=== PATIENT | male | born 1955 | race Caucasian/White ===

== ENCOUNTER 2019-03-09 12:43 | Inpatient (IN) | payer MEDICARE, SELFPAY ==
[2019-03-09 12:46] VITALS: BP 169/85; PULSE 98; RESP 20; TEMP 37.3; O2SAT 95; BMI 33.4
--- NOTE | 2019-03-09 15:35 | ED.DCSUM_ITS ---
- ER Visit Summary Date of Service: 03/09/19 Chief Complaint: Back pain History of Present Illness: The patient is a 64 M presenting with back pain. Patient states this started on Wednesday. He states on Wednesday he was using a sledgehammer. On Wednesday he was cleaning windows. He does not recall a specific injury. He states Wednesday night he started having pain around his right shoulder blade. He had mild associated shortness of breath which is now resolved. He denies chest pain. He has a family history of blood clot, no other PE/DVT risk factors. He went to urgent care today and was sent into the ED for further evaluation. They did a urine dipstick which showed trace blood. Patient has a history of kidney stones. He has no flank pain, dysuria, hematuria, abdominal pain, nausea, vomiting, diarrhea. Subjective fever. Denies other complaints. Physical Examination: Vitals are stable. Temperature 99.2. Alert no acute distress. HEENT exam is unremarkable. Neck is supple. Lungs are clear and equal bilaterally. Heart is regular rate and rhythm. Abdomen is soft nontender nondistended. Back: mild right paraspinal thoracic muscle tenderness. No midline tenderness. No CVA tenderness Extremities are unremarkable. Skin is warm and dry. No rash No focal neurologic deficit. Normal strength and sensation Remainder of exam is unremarkable. Emergency Department Course and Treatment: CBC shows white count 17.7. Chemistries unremarkable. CT abdomen/pelvis shows Findings may be residual or due to chronic fibrosis and absence of acute symptomatology for pneumonia. Mild consolidation is present in the medial aspect of the right lower lobe and associated with a small pleural effusion. A very small focus of consolidation is present in the superior pole of the left lower lobe. A 6 mm calyceal stone is present in the midpole of the right kidney. A 3 mm calyceal stone is also present in the midpole of the right kidney. Mild bilateral perinephric stranding is present, likely due to chronic inflammation. A 3 mm calyceal stone is seen in the upper pole of the left kidney. No hydronephrosis is present. No hydroureter is seen on this study. CTA chest shows mild to moderate irregular consolidation is present in the basilar segment of the right lower lobe and associated with a small pleural effusion. A very small focus of consolidation is seen in the right middle lobe as well as the superior segment of the left lobe lower lobe. Left lower lobe atelectasis is also present. The remaining lung terry are clear. The findings can be associated with pneumonic infiltrates particularly in the right lower lobe, but previous infection and unresolved changes can also present in this manner. Negative for pulmonary embolism of the main pulmonary arteries and trauma. These smaller branches are suboptimally to poorly opacified and not of diagnostic quality to exclude pulmonary embolism in these regions. If symptoms persist consider nuclear medicine VQ scan. Lactic acid 1.3. Urinalysis shows trace blood, 0-5 white blood cells, 0 red blood cells. Blood cultures were sent. He was given Levaquin IV. Discussed with the hospitalist for admission. Disposition: Admission Impression: Multilobar pneumonia This note was generated with [employer] dictation software. It may contain incorrect words, spelling, and punctuation that were not noted in review of the chart prior to signing ED Disposition - Plan for ED Patient: Referrals: Obed Bobby MD [Primary Care Provider] -
[2019-03-09 15:48] LABS: Absolute Lymphocyte Count 1.32 X10^3/uL (0.83-4.51); Absolute Neutrophil Count 14.8 X10^3/uL (2.0-7.7); Basophil# 0.05 X10^3/uL; Basophil% 0.3 % (0-1); Hematocrit 47.5 % (40-54); Lymphocyte # 1.32 X10^3/ul (4.0); Lymphocyte % 7.5 % (19-41); Mean Corp Hgb Conc 33.7 g/dL (32-36); Mean Corpuscular Hgb 31.3 pg (27.0-32.0); Monocyte# 1.46 X10^3/uL; Monocyte% 8.3 % (0-10); NRBC Flagged by Analyzer 0 % (0-5); Neutrophil # 14.75 X10^3/uL (2.7-7.7); Neutrophil % 83.4 % (47-70); Platelet Count 251 K/mm3 (150-450); RBC Distribution Width CV 12.7 % (11.6-14.6); RBC Distribution Width SD 43.8 fl (35.1-43.9); Red Blood Count 5.11 M/mm3 (4.6-6.2); White Blood Count 17.7 K/mm3 (4.4-11.0)
[2019-03-09 16:01] LABS: Anion Gap 5 (5-15); BUN 18 mg/dL (7-18); BUN/Creat Ratio 15.8 RATIO (10-20); Calcium,Total 9.1 mg/dL (8.5-10.1); Chloride 104 mmol/L (98-107); Creatinine, Serum 1.14 mg/dL (0.70-1.30); EST Glomerular Filtration Rate 69 mL/min (>60); Est Glom Filt Rate - Afr Amer 83 mL/min (>60); Glucose 104 mg/dL (74-106); Potassium 4.2 mmol/L (3.5-5.1); Sodium Level 136 mmol/L (136-145)
--- NOTE | 2019-03-09 16:20 | CT_ITS ---
STUDY: CT ABDOMEN AND PELVIS WITHOUT CONTRAST REASON FOR EXAM: Male, 64 years old. BACK PAIN, HX [place] RADIATION DOSAGE (If Supplied By Facility): CTDIvol = ( 16.39 ) mGy, DLP = ( 1884.73 ) mGycm TECHNIQUE: Transaxial images were obtained from the dome of the diaphragm to the symphysis pubis without oral contrast, and without intravenous contrast. Sagittal and coronal images were reconstructed. Individualized dose optimization techniques were used for this CT. COMPARISON: None. FINDINGS: Mild consolidation is present in the medial aspect of the right lower lobe and associated with a small pleural effusion. A very small focus of consolidation is present in the superior pole of the left lower lobe. Normal liver. Normal gallbladder and extrahepatic biliary system. Normal spleen. Normal pancreas. Normal bilateral adrenal glands. A 6 mm calyceal stone is present in the midpole of the right kidney. A 3 mm calyceal stone is also present in the midpole of the right kidney. Mild bilateral perinephric stranding is present. A 3 mm calyceal stone is seen in the upper pole of the left kidney. No hydronephrosis is present. No hydroureter is seen on this study. Normal left kidney. Normal visualized stomach. Normal small intestine. Normal colon. There is non-visualization of the appendix. There is diffuse atherosclerotic calcification of the abdominal aorta, without a demonstrated aneurysm. Normal inferior vena cava. Normal retroperitoneum. Normal urinary bladder. Small bilateral fat and mesenteric containing inguinal hernias are present. There are diffuse degenerative changes of the visualized lumbar spine. CT/Abdomen/Pelvis without Cont IMPRESSION: 1. Dose the patient have a clinical presentation of pneumonia? Findings may be residual or due to chronic fibrosis and absence of acute symptomatology for pneumonia. Mild consolidation is present in the medial aspect of the right lower lobe and associated with a small pleural effusion. A very small focus of consolidation is present in the superior pole of the left lower lobe. 2. A 6 mm calyceal stone is present in the midpole of the right kidney. A 3 mm calyceal stone is also present in the midpole of the right kidney. 3. Mild bilateral perinephric stranding is present, likely due to chronic inflammation. 4. A 3 mm calyceal stone is seen in the upper pole of the left kidney. No hydronephrosis is present. No hydroureter is seen on this study. Electronically Signed: Davon Echeverria MD at 17:33 EDT , Service support ,
--- NOTE | 2019-03-09 16:20 | CT_ITS ---
STUDY: CTA CHEST REASON FOR EXAM: Male, 64 years old. SOB, HX PE RADIATION DOSAGE (If Supplied By Facility): CTDIvol = ( 16.39 ) mGy, DLP = ( 1884.73 ) mGycm TECHNIQUE: The examination was performed with the intravenous administration of IV Isovue 370 100. Post-processing of the angiographic images was performed, with multiplanar reformation and 3D reconstruction. Individualized dose optimization techniques were used for this CT. COMPARISON: CT of the abdomen and pelvis dated March 09, 2019. FINDINGS: Normal enhancement of the main pulmonary artery and right and left pulmonary arteries. Suboptimal to poor opacification of the secondary and tertiary smaller branches of the pulmonary arteries result in very limited evaluation and is not of diagnostic quality to exclude pulmonary embolism in these regions. No embolus is seen in the pulmonary trunk or main pulmonary arteries. Normal thoracic aorta and visualized great vessels. There is no demonstrated aortic dissection. Normal heart and pericardium. Normal mediastinum. Normal hilar regions. Normal visualized trachea and bronchi. The lungs are well expanded. Mild to moderate irregular consolidation is present in the basilar segment of the right lower lobe and associated with a small pleural effusion. A very small focus of consolidation is seen in the right middle lobe as well as the superior segment of the left lobe lower lobe. Left lower lobe atelectasis is also present. The remaining lung terry are clear. The findings can be associated with pneumonic infiltrates particularly in the right lower lobe, but previous infection and unresolved changes can also present in this manner. Correlation with current clinical symptomatology is recommended. Normal chest wall structures. Normal osseous structures. Normal visualized upper abdomen. CT/CTA Chest W/WO Contrast IMPRESSION: 1. Mild to moderate irregular consolidation is present in the basilar segment of the right lower lobe and associated with a small pleural effusion. 2. A very small focus of consolidation is seen in the right middle lobe as well as the superior segment of the left lobe lower lobe. Left lower lobe atelectasis is also present. The remaining lung terry are clear. 3. The findings can be associated with pneumonic infiltrates particularly in the right lower lobe, but previous infection and unresolved changes can also present in this manner. Correlation with current clinical symptomatology is recommended. 4. Negative for pulmonary embolism of the main pulmonary arteries and trauma. These smaller branches are suboptimally to poorly opacified and not of diagnostic quality to exclude pulmonary embolism in these regions. If symptoms persist consider nuclear medicine VQ scan. Electronically Signed: Davon Echeverria MD at 17:42 EDT , Service support ,
[2019-03-09 16:48] LABS: Bacteria 0 SEEN /hpf (None Seen); Red Blood Cells-Urine 0 SEEN /hpf (0-5); Squamous Epithelial Cells - UA 0 SEEN /hpf (0-5)
[2019-03-09 16:53] LABS: Color, Urine Yellow (Yellow); Glucose, Dipstick Normal (Normal); Ketone-Dipstick Negative (Negative); Leukocyte Esterase-Dipstick 25 /ul (Negative); Nitrite-Dipstick Negative (Negative); Occult Blood-Urine 25 /ul (Negative); Protein-Dipstick 30 mg/dl (Negative); Urine Bilirubin Dipstick Negative (Negative); Urine Clarity Clear (Clear); Urine Urobilinogen Normal (Normal)
[2019-03-09 17:09] LABS: Mucous, Urine 1+ /hpf (<or=2+); White Blood Cells 0-5 SEEN /hpf (0-5)
[2019-03-09 18:04] VITALS: O2SAT 95
[2019-03-09 18:42] LABS: Lactic Acid 1.3 mmol/L (0.4-2.0)
[2019-03-09] MEDS: levoFLOXacin IV 750 MG/150 ML BAG 100 MG IV (19:11)
[2019-03-09 19:12] VITALS: PULSE 80; TEMP 37.6
[2019-03-09 19:13] VITALS: PULSE 80; TEMP 37.6
--- NOTE | 2019-03-09 20:06 | PCM.HP.STD ---
Problem List (1) Community acquired pneumonia Status: Acute History of Present Illness Date of Admission: 03/09/19 Chief Complaint: Right upper back pain The patient is a 64 year old M with a significant history of hypertension not on any home blood pressure medication who presented to the emergency department with right upper back pain that started 2 days before presentation. Because patient did some physical activity with sledge hammer on the day before his symptoms started he attributed his pain to the muscle strain from his hard work. Also he was concerned that he might have developed kidney stones because of previous history of kidney stones. However because his symptoms was progressively getting worse he went to the urgent care on the day of presentation. Urinalysis done at the urgent care showed some trace blood. Chest x-ray was inconclusive. The patient was sent to emergency department to get a CAT scan of his chest. His right shoulder pain is nonradiating. It is a severe. It is aggravated by movements and ameliorated by rest. Associated with symptoms is shortness of breath. He denies any cough. At home patient was taking Tylenol [id number] for pain. Past Medical History Medical History: Medical History (Last Updated 03/09/19 @ 20:47 by Ti Cordoba MD) Hypertension I10 Allergies No Known Allergies Allergy (Verified 03/09/19 12:45) Home Medications: Ambulatory Orders Medication Instructions Recorded Acetaminophen [Tylenol Extra 1,000 mg PO Q6H PRN PRN 03/09/19 Strength] Multivitamin with Minerals 1 ea PO DAILY 03/09/19 [Multiple Vitamin] Surgical History: - - Ankle surgery with nail and plate in. Lives: Spouse/ Significant Other Smoking Status: Never smoker Alcohol: Occasional - *Family History Maternal History Items: Cancer - Breast, Hypertension Paternal History Items: Heart Disease Review of Systems Constitutional: Reports: Anorexia, Chills, Fever - Subjective. Denies: Weight Change HEENT: Denies: Head Aches, Sinus Congestion, Sinus Drainage Cardiovascular: Denies: Chest Pain, Palpitations Respiratory: Reports: Shortness of Breath. Denies: Cough, Sputum production Gastrointestinal: Denies: Abdominal Pain, Nausea, Vomiting Genitourinary: Denies: Dysuria Musculoskeletal: Reports: Back Pain. Denies: Joint Pain, Joint Tenderness Skin: Denies: Rash, Wounds Neurological: Denies: Numbness, Tingling, Focal weakness Psychiatric: Denies: Anxiety, Depression, Homicidal Ideations, Suicidal Ideations Hematologic/ Lymphatic: Denies: Easy Bruising, Easy Bleeding VTE Information - Inpt Only VTE Present on Admission: No VTE Mechan Device Prophylaxis: None VTE Pharm Prophylaxis ordered?: Yes Patient Problems: Active and Suspected Problems (Last Updated 03/09/19 @ 20:47 by Ti Cordoba MD) Community acquired pneumonia (Acute) - Physical Exam Vitals/I&O's: Vital Signs Temp Pulse Resp BP Pulse Ox 99.7 F H 80 20 H 169/85 H 95 03/09/19 19:13 03/09/19 19:13 03/09/19 12:46 03/09/19 12:46 03/09/19 12:46 Oxygen Delivery Method Room Air Weight: 105.687 kg Body Mass Index (BMI) 33.4 General: Alert, Oriented x3, Cooperative HEENT: Atraumatic, PERRLA, EOMI, Normocephalic Neck: Supple, No JVD, Negative Carotid Bruits Lungs: Clear to auscultation, Normal air movement, Diminished Cardiovascular: Regular rate, No murmurs Abdomen: Bowel Sounds Present, Soft, Non Tender Extremities: No edema, Capillary Refill Less than 3 Seconds Skin: No rashes, No breakdown Musculoskeletal: No Tenderness to Palpation of Joints or Extremities Neurological: Cranial nerves II-XII grossly intact Psych/Mental Status: Normal Affect, Appropriate Laboratory Results 03/09/19 15:15: WBC 17.7 H, RBC 5.11, Hgb 16.0, Hct 47.5, MCV 93.0, MCH 31.3, MCHC 33.7, RDW Std Deviation 43.8, RDW Coeff of Chantelle 12.7, Plt Count 251, MPV 11.0, Immature Gran % (Auto) 0.500, Neut % (Auto) 83.4 H, Lymph % (Auto) 7.5 L, [place] % (Auto) 8.3, Eos % (Auto) 0.0, Baso % (Auto) 0.3, Absolute Neuts (auto) 14.8 H, Absolute Lymphs (auto) 1.32, Nucleated RBC % 0 03/09/19 15:15: Sodium 136, Potassium 4.2, Chloride 104, Carbon Dioxide 27.0, Anion Gap 5, BUN 18, Creatinine 1.14, Estim Creat Clear Calc 66.70, Est GFR (MDRD) Af Amer 83, Est GFR (MDRD) Non-Af 69, BUN/Creatinine Ratio 15.8, Glucose 104, Calcium 9.1 03/09/19 16:40: Urine Color Yellow, Urine Clarity Clear, Urine pH 5.0, Ur Specific [place] 1.020, Urine Protein 30 H, Urine Glucose (UA) Normal, Urine Ketones Negative, Urine Occult Blood 25 H, Urine Nitrite Negative, Urine Bilirubin Negative, Urine Urobilinogen Normal, Ur Leukocyte Esterase 25 H, Urine RBC 0 SEEN, Urine WBC 0-5 SEEN, Ur Squamous Epith Cells 0 SEEN, Urine Bacteria 0 SEEN, Urine Mucus 1+ 03/09/19 18:00: Lactic Acid 1.3 Current Medications Levofloxacin (Levaquin Iv) 750 mg in 150 mls @ 100 mls/hr IV X1 ONE Stop: 03/09/19 20:12 Last Admin: 03/09/19 19:11 Dose: 100 mls/hr Documented by: Assessment/Plan All Active Problems (Last Updated 03/09/19 @ 20:47 by Ti Cordoba MD) Community acquired pneumonia (Acute) The patient is a 64 year old M with a significant history of hypertension not on any home blood pressure medication who presented to the emergency department with right upper back pain; and SOB and found to have bilateral multifocal infiltrates on x-ray and with low-grade fever as well leukocytosis consistent with likely community-acquired pneumonia. Sepsis secondary Community acquired pneumonia Lactic acid: 1.3 White count of 17.7 on presentation and documented pulse rate of 98 on admission. Low-grade fever highest of 99.7 Blood culture ?2 is pending Chest CTA: Mild to moderate irregular consolidation in basilar segment of right lower lobe and associated with small pleural effusion. Very small focus of consolidation is seen in the right middle lobe as well as superior segment of the left lower lobe. And with left lower lobe atelectasis. Patient is not coughing to obtain sputum culture. Antibiotics: Patient was started on Levaquin. We will continue patient on azithromycin and ceftriaxone. Albuterol as needed Legionella antigen screen and Strep antigen ordered Incentives spirometer ordered Tylenol PRN for fever and pain. Hypertension Patient reports outpatient elevated blood pressure without being on any medication. On presentation patient was not within goal Hydralazine as needed ordered. Trend blood pressures. DVT prophylaxis Subcutaneous Lovenox Code Visit OBSV E&M: 49384 Initial observation care L3
[2019-03-09 21:26] VITALS: BMI 32.9; BMI 33.0
[2019-03-09 21:35] VITALS: BP 174/77; PULSE 87; RESP 22; TEMP 37.4; O2SAT 96
[2019-03-09 22:07] VITALS: BP 156/78
[2019-03-10] VITALS (8 sets, daily range): BP systolic 146–162; BP diastolic 65–107; PULSE 78–88; RESP 16–22; TEMP 36.7–37.4; O2SAT 93–97
[2019-03-10] MEDS: hydrALAZINE 20 MG/ML Vial 5 MG IV (03:06)
[2019-03-10 08:52] LABS: Absolute Lymphocyte Count 1.17 X10^3/uL (0.83-4.51); Absolute Neutrophil Count 13.2 X10^3/uL (2.0-7.7); Basophil# 0.05 X10^3/uL; Basophil% 0.3 % (0-1); Eosinophil# 0.01 X10^3/uL; Eosinophils% 0.1 % (0-5); Hematocrit 44.2 % (40-54); Hemoglobin 14.8 g/dL (13.0-16.5); Lymphocyte # 1.17 X10^3/ul (4.0); Lymphocyte % 7.5 % (19-41); Mean Corp Hgb Conc 33.5 g/dL (32-36); Mean Corpuscular Hgb 31.4 pg (27.0-32.0); Mean Corpuscular Volume 93.8 fL (80-94); Mean Platelet Vol. 10.9 fl (6.2-12.0); Monocyte# 1.12 X10^3/uL; Monocyte% 7.2 % (0-10); NRBC Flagged by Analyzer 0 % (0-5); Neutrophil # 13.16 X10^3/uL (2.7-7.7); Neutrophil % 84.5 % (47-70); Platelet Count 230 K/mm3 (150-450); RBC Distribution Width CV 12.6 % (11.6-14.6); RBC Distribution Width SD 44.2 fl (35.1-43.9); Red Blood Count 4.71 M/mm3 (4.6-6.2); White Blood Count 15.6 K/mm3 (4.4-11.0)
[2019-03-10 09:05] LABS: AST(SGOT) 18 U/L (15-37); Alanine Aminotransfer ALT/SGPT 24 U/L (16-61); Albumin, Serum 3.3 g/dL (3.2-5.0); Alkaline Phosphatase 69 U/L (45-117); Bilirubin, Direct 0.33 mg/dL (0.00-0.30); Globulin 4.5 g/dL (2.2-4.2); Protein, Total 7.8 g/dL (6.4-8.2)
[2019-03-10 09:10] LABS: International Normalized Ratio 1.3; Prothrombin Time (Protime)PT. 15.5 SECONDS (11.7-14.9)
[2019-03-10] MEDS: Albuterol 2.5 MG/3 ML VIAL.NEB. INHALATION (09:16)
--- NOTE | 2019-03-10 09:48 | PCM.PN.HOSP ---
Patient Problems: Active and Suspected Problems (Last Updated 03/09/19 @ 20:47 by Ti Cordoba MD) Community acquired pneumonia (Acute) Subjective: Patient was admitted yesterday for shortness of breath, cough and chest pain posteriorly, bilaterally on lower side, started on Wednesday about 2 days prior to admission. Patient shortness of breath has much improved. Patient does not have a history of COPD. Had prior pneumonia in 1980s. Had pneumonia shot in the past. Vitals/I&O's: Vital Signs Temp Pulse Resp BP Pulse Ox 99.4 F H 83 18 153/69 H 93 03/10/19 08:13 03/10/19 08:13 03/10/19 08:13 03/10/19 08:13 03/10/19 08:13 Oxygen Delivery Method Room Air Weight: 229 lb 11.547 oz Body Mass Index (BMI) 32.9 Intake and Output for Last 24 Hours 03/08/19 03/09/19 03/10/19 23:59 23:59 23:59 Intake Total 150 / 300 500 / 500 Balance 150 / 300 500 / 500 General: Alert, Oriented x3, Cooperative HEENT: Atraumatic, PERRLA, EOMI, Normocephalic Neck: Supple, No JVD, Negative Carotid Bruits Lungs: Clear to auscultation, No rhonchi, No wheeze, No rales, Diminished - Air entry diminished in bilateral lung bases Cardiovascular: Regular rate, Regular Rhythm, Normal S1, Normal S2, No murmurs Abdomen: Bowel Sounds Present, Soft, Non Tender, Non-Distended Extremities: No edema, Capillary Refill Less than 3 Seconds Skin: No rashes, No breakdown Musculoskeletal: No Tenderness to Palpation of Joints or Extremities, Arthritic Changes Neurological: Cranial nerves II-XII grossly intact, Deep Tendon Reflexes 2+/4 and Symmetrical, Neuro grossly intact, Motor Exam 5/5 strength throughout Psych/Mental Status: Normal Affect, Appropriate Microbiology Past 72 Hours 03/09/19 16:40 Urine, Clean Catch Streptococcus pneumoniae Antigen (M - Final 03/09/19 16:40 Urine, Clean Catch Legionella Antigen - Final Laboratory Results 03/09/19 15:15: WBC 17.7 H, RBC 5.11, Hgb 16.0, Hct 47.5, MCV 93.0, MCH 31.3, MCHC 33.7, RDW Std Deviation 43.8, RDW Coeff of Chantelle 12.7, Plt Count 251, MPV 11.0, Immature Gran % (Auto) 0.500, Neut % (Auto) 83.4 H, Lymph % (Auto) 7.5 L, [place] % (Auto) 8.3, Eos % (Auto) 0.0, Baso % (Auto) 0.3, Absolute Neuts (auto) 14.8 H, Absolute Lymphs (auto) 1.32, Nucleated RBC % 0 03/09/19 15:15: Sodium 136, Potassium 4.2, Chloride 104, Carbon Dioxide 27.0, Anion Gap 5, BUN 18, Creatinine 1.14, Estim Creat Clear Calc 66.70, Est GFR (MDRD) Af Amer 83, Est GFR (MDRD) Non-Af 69, BUN/Creatinine Ratio 15.8, Glucose 104, Calcium 9.1 03/09/19 16:40: Urine Color Yellow, Urine Clarity Clear, Urine pH 5.0, Ur Specific [place] 1.020, Urine Protein 30 H, Urine Glucose (UA) Normal, Urine Ketones Negative, Urine Occult Blood 25 H, Urine Nitrite Negative, Urine Bilirubin Negative, Urine Urobilinogen Normal, Ur Leukocyte Esterase 25 H, Urine RBC 0 SEEN, Urine WBC 0-5 SEEN, Ur Squamous Epith Cells 0 SEEN, Urine Bacteria 0 SEEN, Urine Mucus 1+ 03/09/19 18:00: Lactic Acid 1.3 03/10/19 08:28: Total Bilirubin 1.40 H, Direct Bilirubin 0.33 H, AST 18, ALT 24, Alkaline Phosphatase 69, Total Protein 7.8, Albumin 3.3, Globulin 4.5 H 03/10/19 08:28: WBC 15.6 H, RBC 4.71, Hgb 14.8, Hct 44.2, MCV 93.8, MCH 31.4, MCHC 33.5, RDW Std Deviation 44.2 H, RDW Coeff of Chantelle 12.6, Plt Count 230, MPV 10.9, Immature Gran % (Auto) 0.400, Neut % (Auto) 84.5 H, Lymph % (Auto) 7.5 L, [place] % (Auto) 7.2, Eos % (Auto) 0.1, Baso % (Auto) 0.3, Absolute Neuts (auto) 13.2 H, Absolute Lymphs (auto) 1.17, Nucleated RBC % 0 03/10/19 08:28: PT 15.5 H, INR 1.3 Current Medications Acetaminophen (Tylenol) 1,000 mg PO Q6H PRN PRN PRN Reason: Pain Or Fever > 100.7 Albuterol Sulfate (Ventolin Aerosols) 2.5 mg INHALATION Q2H PRN PRN Reason: SHORTNESS OF BREATH Last Admin: 03/10/19 09:16 Dose: 2.5 mg Documented by: Enoxaparin Sodium (Lovenox) 40 mg SC DAILY NICOLE Hydralazine HCl (Apresoline Iv) 5 mg IV Q4H PRN PRN PRN Reason: SBP > 160 Last Admin: 03/10/19 03:06 Dose: 5 mg Documented by: Ceftriaxone Sodium (Rocephin) 1 gm in 50 mls @ 100 mls/hr IV Q24H NICOLE Azithromycin 500 mg/ Dextrose 255 mls @ 250 mls/hr IV Q24 NICOLE Stop: 03/12/19 11:02 Ondansetron HCl (Zofran) 4 mg IV Q8H PRN PRN PRN Reason: Nausea STROKE Vital Signs/Narrative: Vital Signs Temp Pulse Resp BP Pulse Ox 03/10/19 08:13 99.4 F H 83 18 153/69 H 93 Medical Necessity - Tobacco Use Smoking Status: Never smoker Assessment/Plan All Active Problems (Last Updated 03/09/19 @ 20:47 by Ti Cordoba MD) Community acquired pneumonia (Acute) The patient is a 64 year old M with a significant history of hypertension who presented to the emergency department with right upper back pain; earlier bilateral upper back pain and SOB and found to have bilateral multifocal infiltrates on x-ray and with low-grade fever as well leukocytosis consistent with community-acquired pneumonia. Sepsis secondary Community acquired pneumonia Patient does not have history of COPD. Never smoker. Lactic acid normal. High leukocytosis count, 17.7 thousand with left shift, 83% neutrophil. LFT shows total bilirubin 1.4 mainly indirect 1.1, normal transaminases and alkaline phosphatase. Urinary antigens are negative. Blood cultures x2 are pending. Chest CTA: Mild to moderate irregular consolidation in basilar segment of right lower lobe and associated with small pleural effusion. Very small focus of consolidation is seen in the right middle lobe as well as superior segment of the left lower lobe with left lower lobe atelectasis. Patient is not coughing to obtain sputum culture. Patient was given Levaquin in ED and then started on ceftriaxone and azithromycin. Continue incentive spirometry, Tylenol. Patient was started on Levaquin. We will continue patient on azithromycin and ceftriaxone. Hypertension: Colic blood pressure in 150s. Started on losartan milligrams daily. On hydralazine 10 mg IV q. as needed for systolic blood pressure more than 180 mmHg. DVT prophylaxis Subcutaneous Lovenox Code Visit Inpatient E&M: 36572 Subs Hosp L2
[2019-03-10] MEDS: 0.9% Saline Lock 10 ML Syringe IV (09:56)
--- NOTE | 2019-03-10 10:30 | CASEMGMT ---
LEYDA HERNANDEZ Face to Face with patient for initial transition planning/care coordination assessment. LEYDA HERNANDEZ introduced self and role at [facility]. Patient lying in bed, alert and oriented. Patient willing to participate in assessment and is able to answer all questions appropriately. Care providers, pharmacy, and demographics verified. Patient wishes to discharge home, denies need for home health at this time. Patient states he has no further needs or concerns at this time. CM to follow for discharge planning needs that may arise. PCP: [facility]ante Specialists: None Preferred Pharmacy: [facility] Insurance: [employer] Prescription Benefit: yes Living Will/HPOA: none LNOK: Living Arrangements: Patient lives with in 2 story home. Patient is independent and able to ambulate stairs Transportation: self/ DME/HHC: Patient has crutches at home. Denies any further DME. LEYDA HERNANDEZ provided list of DME companies should patient need DME at discharge. No previous HHC Disposition Plan: Patient to discharge home with family support and follow-up plans in place. Lima BERRY, RN, CM
[2019-03-10] MEDS: Ceftriaxone 1 GM/50 ML BAG IV (11:20)
[2019-03-10] MEDS: Enoxaparin 40 MG/0.4 ML Syringe SC (11:40)
[2019-03-10] MEDS: Losartan Potassium 50 MG Tablet PO (11:40)
[2019-03-11 03:00] VITALS: BP 139/70; PULSE 74; RESP 16; TEMP 36.9; O2SAT 96
[2019-03-11 07:46] LABS: Absolute Neutrophil Count 9.6 X10^3/uL (2.0-7.7); Basophil# 0.04 X10^3/uL; Basophil% 0.3 % (0-1); Hematocrit 40.1 % (40-54); Hemoglobin 13.5 g/dL (13.0-16.5); Lymphocyte % 11.5 % (19-41); Mean Corp Hgb Conc 33.7 g/dL (32-36); Mean Corpuscular Hgb 31.1 pg (27.0-32.0); Mean Corpuscular Volume 92.4 fL (80-94); Mean Platelet Vol. 10.8 fl (6.2-12.0); Monocyte# 1.13 X10^3/uL; Monocyte% 9.3 % (0-10); NRBC Flagged by Analyzer 0 % (0-5); Neutrophil # 9.56 X10^3/uL (2.7-7.7); Neutrophil % 78.3 % (47-70); Platelet Count 233 K/mm3 (150-450); RBC Distribution Width CV 12.8 % (11.6-14.6); RBC Distribution Width SD 43.8 fl (35.1-43.9); Red Blood Count 4.34 M/mm3 (4.6-6.2); White Blood Count 12.2 K/mm3 (4.4-11.0)
[2019-03-11 09:41] VITALS: BP 152/71; PULSE 74; RESP 18; TEMP 36.8; O2SAT 95
[2019-03-11] MEDS: Losartan Potassium 50 MG Tablet PO (09:45)
--- NOTE | 2019-03-11 10:10 | PCM.DC ---
- Discharge Diagnoses Current Active Problems: Current Active and Chronic Problems (Last Updated 03/09/19 @ 20:47 by Ti Cordoba MD) Community acquired pneumonia (Acute) You will use the following diet at home:: No restrictions Your food should be the consistency of: Regular Your liquids should be the consistency of: Regular/Thin Discharge Activity: Return to Normal Activity Weight Bearing Status: Full weight bearing Allergies/Adverse Reactions: Allergies No Known Allergies Allergy (Verified 03/09/19 12:45) Medications to take at Discharge Acetaminophen [Tylenol] 1,000 mg PO Q6H PRN PRN 03/09/19 Multivitamin with Minerals [Multiple Vitamin] 1 ea PO DAILY 03/09/19 Levofloxacin [Levaquin] 750 mg PO DAILY #5 tab 03/11/19 Losartan Potassium [Cozaar] 50 mg PO DAILY #30 tab 03/11/19 The following prescriptions were given: Losartan Potassium [Cozaar] 50 mg PO DAILY #30 tab Transmission Status: Pending to [facility] Levofloxacin [Levaquin] 750 mg PO DAILY #5 tab Transmission Status: Pending to [facility] Primary Care Physician: Obed Bobby MD [Primary Care Provider] - Please follow up with your Primary Care Physician in: next visit Test Results: Test results from this visit will be discussed in further detail at your follow-up appointment, if applicable.
--- NOTE | 2019-03-11 18:04 | DS.PCM_ITS ---
Discharge Date and Diagnosis Date of Admission: 03/09/19 Date of Discharge: 03/11/19 - Primary Discharge Diagnosis #1 sepsis secondary to community-acquired pneumonia #2 community-acquired pneumonia-etiology unclear #3 essential hypertension Hospital Course and Treatment Operations: None Procedures: None Summary of Care Provided: The patient is a 64 year old M who was seen in the emergency room at [facility] with complaints of back discomfort, he also had mild shortness of breath. Work-up in the emergency room included labs which showed an elevated white blood cell count at 17.7, chemistries are unremarkable, imaging study showed mild consolidation present in the medial aspect of the right lower lobe along with a small pleural effusion. There is also a small focus of consolidation in the superior pole of the left lower lobe. No evidence of pulmonary embolism was noted on his CTA. Lactic acid was not found to be elevated. Patient was given IV Levaquin and he was admitted to [place] [id number] for acute sepsis secondary to community-acquired pneumonia. IV antibiotics were continued. Legionella antigen in the urine was negative, strep antigen in the urine was also negative. Patient was placed on blood pressure medications-his blood pressure was noted to be elevated. On 03/11/2019, patient was seen and examined: On examination he appeared in good health and spirits. Vital signs as documented. Skin warm and dry and without overt rashes. Neck without JVD. Lungs clear. Heart exam notable for regular rhythm, normal sounds and absence of murmurs, rubs or gallops. Abdomen unremarkable and without evidence of organomegaly, masses, or abdominal aortic enlargement. Extremities nonedematous. Neuro: Cranial nerves II through XII are grossly intact, no focal motor deficits were noted, sensation to light touch and pinprick intact. Psych: Patient is alert and oriented x3, he does not appear anxious or depressed On 03/11/2019, patient was seen and examined and felt to be in stable condition for discharge home. - Physical Exam Vitals/I&O's: Vital Signs Temp Pulse Resp BP Pulse Ox 98.2 F 74 18 152/71 H 95 03/11/19 09:41 03/11/19 09:41 03/11/19 09:41 03/11/19 09:41 03/11/19 09:41 Oxygen Delivery Method Room Air Weight: 104.2 kg Body Mass Index (BMI) 32.9 Intake and Output for Last 24 Hours 03/09/19 03/10/19 03/11/19 23:59 23:59 23:59 Intake Total 150 / 300 1339.34 / 1939.34 950 / 950 Balance 150 / 300 1339.34 / 1939.34 950 / 950 Microbiology Past 72 Hours 03/09/19 16:40 Urine, Clean Catch Streptococcus pneumoniae Antigen (M - Final 03/09/19 16:40 Urine, Clean Catch Legionella Antigen - Final Laboratory Results 03/11/19 07:22: WBC 12.2 H, RBC 4.34 L, Hgb 13.5, Hct 40.1, MCV 92.4, MCH 31.1, MCHC 33.7, RDW Std Deviation 43.8, RDW Coeff of Chantelle 12.8, Plt Count 233, MPV 10.8, Immature Gran % (Auto) 0.600, Neut % (Auto) 78.3 H, Lymph % (Auto) 11.5 L, [place] % (Auto) 9.3, Eos % (Auto) 0.0, Baso % (Auto) 0.3, Absolute Neuts (auto) 9.6 H, Absolute Lymphs (auto) 1.40, Nucleated RBC % 0 Discharge Activity: Return to Normal Activity Weight Bearing Status: Full weight bearing Home Medications: Medications to take at Discharge Acetaminophen [Tylenol] 1,000 mg PO Q6H PRN PRN 03/09/19 Multivitamin with Minerals [Multiple Vitamin] 1 ea PO DAILY 03/09/19 Levofloxacin [Levaquin] 750 mg PO DAILY #5 tab 03/11/19 Losartan Potassium [Cozaar] 50 mg PO DAILY #30 tab 03/11/19 Following Prescrptions Were Given to Patient: Losartan Potassium [Cozaar] 50 mg PO DAILY #30 tab Transmission Status: Received by [facility] #30 Levofloxacin [Levaquin] 750 mg PO DAILY #5 tab Transmission Status: Received by [facility] Primary Care Physician: Obed Bobby MD [Primary Care Provider] - Please follow up with your Primary Care Physician in: next visit Disposition: Home Minutes spent on discharge:: 33 Patient Condition:: Stable Medical Necessity - Tobacco Use Smoking Status: Never smoker Meaningful Use Info Meaningful Use Diagnoses (Choose all that apply): None applicable Code Visit Inpatient E&M: 90672 Disch Hosp
== END 2019-03-11 10:53 | disposition home or self-care (01) | DRG 871 ==
LOC: ED 15:07 → MS3 22:49
PROVIDERS: Internal Medicine; Admitting Provider Hospitalist; Emergency Provider Emergency Medicine; Family Provider Family Medicine; PCP Family Medicine; Referring Provider Hospitalist; Visit Provider Internal Medicine
DX: A41.9 Sepsis, unspecified organism (principal); J18.9 Pneumonia, unspecified organism; I10 Essential (primary) hypertension
CPT/HCPCS: 36415; 71275; 74176; 80048; 80076; 81001; 83605; 85025; 85610; 87040; 87449; 94640; 99283; J7050; Q9967; A4216

== ENCOUNTER 2019-11-30 10:52 | Emergency (ER) | payer MEDICARE, SELFPAY ==
[2019-03-09 21:26] VITALS: BMI 32.9
[2019-11-30 10:53] VITALS: BP 158/111; PULSE 90; RESP 18; TEMP 36.6; O2SAT 96; BMI 33.0
--- NOTE | 2019-11-30 11:11 | RAD_ITS ---
STUDY: X-RAY CHEST REASON FOR EXAM: Male, 64 years old. , RIGHT SIDED RIB PAIN, AND BACK PAIN TECHNIQUE: Single AP portable view of the chest. COMPARISON: None. FINDINGS: EKG electrodes are seen. There is blunting of the right costophrenic angle. The lungs are clear. There is borderline cardiomegaly. Normal mediastinum and marcellus. Normal visualized pulmonary arteries. There is atherosclerotic tortuosity of the aortic arch and descending thoracic aorta. There are diffuse degenerative changes of the visualized thoracic spine. Normal visualized ribs, clavicles, and shoulders. There is no demonstrated abnormality of the visualized soft tissue structures of the upper abdomen. RAD/Chest 1 View (Portable) IMPRESSION: There is blunting of the right costophrenic angle. Electronically Signed: Vaughn Calle, at 12:07 EDT , Service support ,
--- NOTE | 2019-11-30 11:12 | CT_ITS ---
STUDY: CT ABDOMEN AND PELVIS WITHOUT CONTRAST REASON FOR EXAM: Male, 64 years old. `RT RIB PAIN, HX HTN RADIATION DOSAGE (If Supplied By Facility): CTDIvol = ( 20.52 ) mGy, DLP = ( 1097.28 ) mGycm TECHNIQUE: Transaxial images were obtained from the dome of the diaphragm to the symphysis pubis without oral contrast, and without intravenous contrast. Sagittal and coronal images were reconstructed. Individualized dose optimization techniques were used for this CT. COMPARISON: Comparison is made with prior examination dated March 09, 2019. Mild degree of the pleural thickening on the right side with underlying atelectasis. This has improved as compared to prior study. FINDINGS: Mild degree of the pleural thickening on the right side with underlying atelectasis. This has improved as compared to prior study. Minimal increased markings at the left base. The visualized portions of the heart are within normal limits. Normal liver. Normal gallbladder and extrahepatic biliary system. Normal spleen. Normal pancreas. Normal bilateral adrenal glands. There are 2 nonobstructive right intrarenal calculi. The largest measures 3 mm. 2 mm nonobstructive calculus in the upper pole of the left kidney. Nonspecific mild bilateral perinephric stranding. There is a small hiatal hernia. Normal small intestine. Moderate amount of fecal material is seen in the right hemicolon. Scattered sigmoid diverticula. There is non-visualization of the appendix. Normal abdominal aorta. Normal inferior vena cava. There is borderline retroperitoneal lymphadenopathy with enlarged nodes no greater than 10mm in the short axis diameter. Normal urinary bladder. Small bilateral inguinal hernias containing fat worse on the left side. Small umbilical hernia containing fat. There are diffuse degenerative changes of the visualized lumbar spine. CT/Abdomen/Pelvis without Cont IMPRESSION: Small right pleural effusion with bibasilar atelectasis. Small bilateral nonobstructive intrarenal calculi. Nonspecific bilateral perinephric stranding. Electronically Signed: Vaughn Calle, at 12:06 EDT , Service support ,
--- NOTE | 2019-11-30 11:12 | EKG12_ITS ---
Test Reason : Blood Pressure : / mmHG Vent. Rate : 076 BPM Atrial Rate : 076 BPM P-R Int : 172 ms QRS Dur : 092 ms QT Int : 358 ms P-R-T Axes : 034 -08 020 degrees QTc Int : 402 ms Normal sinus rhythm Minimal voltage criteria for LVH, may be normal variant Borderline ECG Confirmed by FRANCISCO BUI, HECTOR ([id number]), sound editor BROOKLYNN OWEN ([id number]) on 12/04/2019 10:58:40 AM Referred By: DOMITILA Confirmed By:HECTOR SINGH MD
[2019-11-30 11:34] LABS: Bacteria 0 SEEN /hpf (None Seen); Mucous, Urine 0 SEEN /hpf (<or=2+)
[2019-11-30] MEDS: 0.9% Normal Saline 1,000 ML 150 ML IV (11:34)
[2019-11-30 11:44] LABS: Absolute Neutrophil Count 13.5 X10^3/uL (2.0-7.7); Basophil# 0.05 X10^3/uL; Basophil% 0.3 % (0-1); Hematocrit 47.2 % (40-54); Hemoglobin 15.7 g/dL (13.0-16.5); Lymphocyte % 6.9 % (19-41); Mean Corp Hgb Conc 33.3 g/dL (32-36); Mean Corpuscular Hgb 31.3 pg (27.0-32.0); Mean Corpuscular Volume 94.2 fL (80-94); Mean Platelet Vol. 11.1 fl (6.2-12.0); Monocyte# 1.13 X10^3/uL; Monocyte% 7.1 % (0-10); NRBC Flagged by Analyzer 0 % (0-5); Neutrophil % 85.2 % (47-70); Platelet Count 239 K/mm3 (150-450); RBC Distribution Width CV 12.3 % (11.6-14.6); RBC Distribution Width SD 42.3 fl (35.1-43.9); Red Blood Count 5.01 M/mm3 (4.6-6.2); White Blood Count 15.9 K/mm3 (4.4-11.0)
[2019-11-30 11:52] LABS: AST(SGOT) 20 U/L (15-37); Alanine Aminotransfer ALT/SGPT 30 U/L (16-61); Albumin, Serum 4.2 g/dL (3.2-5.0); Alkaline Phosphatase 84 U/L (45-117); Anion Gap 5 (5-15); BUN 18 mg/dL (7-18); BUN/Creat Ratio 16.8 RATIO (10-20); Calcium,Total 8.7 mg/dL (8.5-10.1); Chloride 106 mmol/L (98-107); Color, Urine Yellow (Yellow); Creatinine, Serum 1.07 mg/dL (0.70-1.30); EST Glomerular Filtration Rate 74 mL/min (>60); Est Glom Filt Rate - Afr Amer 89 mL/min (>60); Estimated Creatinine Clearance 71.07 ml/min; Globulin 4.2 g/dL (2.2-4.2); Glucose 108 mg/dL (74-106); Glucose, Dipstick Normal (Normal); Ketone-Dipstick Negative (Negative); Leukocyte Esterase-Dipstick 25 /ul (Negative); Nitrite-Dipstick Negative (Negative); Occult Blood-Urine 10 /ul (Negative); Potassium 4.1 mmol/L (3.5-5.1); Protein, Total 8.4 g/dL (6.4-8.2); Protein-Dipstick Negative (Negative); Sodium Level 138 mmol/L (136-145); Specific Gravity, Urine 1.015 (1.002-1.030); Urine Bilirubin Dipstick Negative (Negative); Urine Clarity Sl. Cloudy (Clear); Urine Urobilinogen Normal (Normal)
[2019-11-30 12:04] LABS: Red Blood Cells-Urine 0-5 SEEN /hpf (0-5); Squamous Epithelial Cells - UA 0-5 SEEN /hpf (0-5); White Blood Cells 0-5 SEEN /hpf (0-5)
--- NOTE | 2019-11-30 12:25 | US_ITS ---
STUDY: ABDOMINAL ULTRASOUND - RIGHT UPPER QUADRANT REASON FOR VISIT: Male, 64 years old RUQ PAIN TECHNIQUE: Ultrasound evaluation of the right upper quadrant was performed with real-time and static boyd-scale imaging. TECHNICAL QUALITY: Limited. Examination limited due to the patient?s condition. COMPARISON: None. FINDINGS: Liver: The liver measures 16.7 cm. There is increased echogenicity consistent with fatty infiltration. The bile ducts are within normal limits. There is hepatic color flow. The direction of portal flow is hepatopetal. There is no demonstrated mass lesion. Gallbladder: Normal distended gallbladder. The gallbladder wall measures 2.0 mm. There is a negative sonographic Cosme''s sign. There is no pericholecystic fluid. There are no gallstones. Common Bile Duct (C.B.D.): The common bile duct measures 2.3 mm. Pancreas: There is nonvisualization of the pancreas due to overlying bowel gas. Right Kidney: Normal size of the right kidney. The right kidney measures 12 cm x 5.2 cm x 6.1 cm. Normal renal cortex. The right cortex measures 1.0 cm. There is no demonstrated renal mass or cyst. There is no right hydronephrosis. There is a 4 mm x 4 mm x 3 mm echogenic focus in keep with a calculus. US/Gallbladder IMPRESSION: Fatty infiltration of the liver. Nonobstructive right intrarenal calculus. Electronically Signed: Vaughn Calle, at 13:46 EDT , Service support ,
[2019-11-30] MEDS: Morphine 4 MG/ML Syringe IV (12:36)
[2019-11-30] MEDS: Ondansetron 4 MG/2 ML Vial IV (12:36)
[2019-11-30 13:40] VITALS: BP 162/79; PULSE 76; RESP 16; O2SAT 97
--- NOTE | 2019-11-30 13:58 | ED.VISSUMM ---
- ER Visit Summary Date of Service: 11/30/19 Chief Complaint: Right flank pain History of Present Illness: The patient is a [address] Jayson Bryant. He ports he has right flank pain that began yesterday. It is a continuous pain that waxes and wanes. Is 7-10 at worst and 3-10 currently. Describes the pain as sharp. Is worsened by sitting or laying down. It was transient relieved with a hot shower. States he had similar symptoms previously with pneumonia. Patient denies any fever or chills. He reports he has a chronic cough that is unchanged. Patient denies any chest pain or shortness of breath. No nausea, vomiting, or diarrhea. No dysuria or frequency. No ankle swelling or calf pain. No personal history of DVT. No recent travel. Physical Examination: Vitals: Stable. Afebrile. General: Well-nourished and well-developed. Head: Normocephalic atraumatic. Neck: Supple, no lymphadenopathy. No JVD. Nontender. Cardiovascular: Regular rate and rhythm. No murmurs. Respiratory: No respiratory distress. Clear to auscultation bilaterally. Abdominal: Soft, moderate right upper quadrant tenderness to palpation, nondistended, normal bowel sounds. No guarding, rebound, or peritoneal signs. Back: Mild right CVA tenderness to percussion. Extremities: Nontender, no edema. Skin: Normal color, no rash. Neurologic: Alert and oriented ?3. Cranial nerves II through XII are intact. Normal strength and sensation. Psych: Normal affect. Test Results: EKG is sinus at [address] changes. Troponin is negative. CBC shows a white count of 15.9 with 85 segmented neutrophils and 7 lymphocytes. Chem-7 shows a glucose of 108. LFTs show total protein of 8.4 and total bili of 1.2. UA shows leukocytes. Clinical Impression(s) from Imaging Studies Chest X-Ray 11/30/19 11:11 IMPRESSION: There is blunting of the right costophrenic angle. Electronically Signed: Vaughn Calle, at 12:07 EDT , Service support , Abdomen/Pelvis CT 11/30/19 11:12 IMPRESSION: Small right pleural effusion with bibasilar atelectasis. Small bilateral nonobstructive intrarenal calculi. Nonspecific bilateral perinephric stranding. Electronically Signed: Vaughn Calle, at 12:06 EDT , Service support , Gallbladder Ultrasound 11/30/19 12:25 IMPRESSION: Fatty infiltration of the liver. Nonobstructive right intrarenal calculus. Electronically Signed: Vaughn Calle, at 13:46 EDT , Service support , Emergency Department Course and Treatment: Patient was treated with morphine and Zofran IV. He is resting comfortably. Had a prolonged discussion with the patient about his imaging and lab findings. At this time I do not have an explanation for his pain. He refused a CTA of the chest. Treatment Plan: Patient feels well and would like to go home. He will be discharged with Percocet and Zofran. Instructed to follow-up his primary care physician 1 to 2 days if not improving. Return to the emergency department for any worsening symptoms. Disposition: To home in improved and stable condition. Impression: 1. Right flank pain, uncertain cause. 2. Leukocytosis. This note was generated with [employer] dictation software. It may contain incorrect words, spelling, and punctuation that were not noted in review of the chart prior to signing ED Disposition - Plan for ED Patient: Disposition: Home or Assisted Living Instructions: ED Flank Pain Uncertain Cause Prescriptions: Oxycodone HCl/Acetaminophen [Percocet 5/325] 1 tab PO Q6H PRN PRN 3 Days #12 tab PRN Reason: Pain Prescription Printed Ondansetron [Zofran Odt] 4 mg PO Q8H PRN PRN #10 tab PRN Reason: Nausea Prescription Printed Referrals: Obed Bobby MD [Primary Care Provider] - 3-5 Days if not improving
== END 2019-11-30 14:08 | disposition home or self-care (01) ==
PROVIDERS: Emergency Provider Emergency Medicine; PCP Family Medicine
DX: R10.9 Unspecified abdominal pain (principal); D72.829 Elevated white blood cell count, unspecified; I10 Essential (primary) hypertension
CPT/HCPCS: 71045; 74176; 76705; 80053; 81001; 83605; 84484; 85025; 93005; 96361; 96374; 96375; 99284; J7030; A4216; J2405